=== PATIENT | female | born 1975 | race Two or more races ===

== ENCOUNTER → 2016-07-30 | Outpatient (CLI) | payer OTHER | LOC: FIMAGING 13:15 | PROVIDERS: ATTEND Obstetrics & Gynecology | DX: N92.1 Excessive and frequent menstruation with irregular cycle (principal); D25.9 Leiomyoma of uterus, unspecified; N83.9 Noninflammatory disorder of ovary, fallopian tube and broad ligament, unspecified ==

== ENCOUNTER 2016-09-27 16:51 | Emergency (ER) | payer OTHER ==
[2016-09-27] MEDS ORDERED: NS 1,000 ML IV ONE (17:28)
[2016-09-27] MEDS ORDERED: KETOROLAC 30 MG/1 ML SDV IVP ONE (17:28)
[2016-09-27] MEDS ORDERED: ONDANSETRON 4 MG/2 ML VIAL IVP ONE (17:28)
[2016-09-27] MEDS ORDERED: HYDROmorphONE/DILAUDID 1 MG/ML SYR IVP ONE (17:29)
--- NOTE | 2016-09-27 17:34 | EDPHY ---
H & P Time Seen by Provider: 09/27/16 17:18 HPI/ROS: HPI Vaginal bleeding. 41-year-old female by private vehicle. This patient has a history of uterine fibroids, ovarian cyst dysfunctional uterine bleeding. She is managed by Dr. Luis Johnson. She reports that as treatment for her dysfunctional uterine bleeding Dr. Johnson put a [place] IUD in on August 16. The patient reports that her bleeding slowed for about 5 days but then started again. She was not placed on a progesterone tablet a couple of weeks ago. Again the bleeding slowed but she then had a reaction to this which she describes as palpitations and feeling flushed. She was taken off of this on Tuesday of last week. She started bleeding again on Tuesday. She comes in complaining of her typical vaginal bleeding and associated lower abdominal cramping. She denies any other complaints. No fever. ROS: Constitutional: No fever, no chills. No weakness. Eyes: No discharge. No changes in vision. ENT: No sore throat. No nasal congestion or rhinorrhea. Respiratory: No cough. No shortness of breath. Cardiac: No chest pain, no palpitations. Gastrointestinal: Lower abdominal cramping as above, no vomiting, no diarrhea. Genitourinary: No hematuria. No dysuria or increased frequency with urination. As above. Musculoskeletal: No back pain. No neck pain. No myalgias or arthralgias. Skin: No rashes. Neurological: No headache. No focal weakness or altered sensation. Past medical history: Uterine fibroids, ovarian cyst, dysfunctional uterine bleeding, type 2 diabetes, hypertension Social history: Here by herself. No alcohol. Nonsmoker. Physical Exam: General Appearance: Alert, no distress. Moderately obese. This patient is responding to questions appropriately and in full sentences. This patient appears well-hydrated and well-nourished. Eyes: Pupils equal and round no pallor or injection. No lid edema, erythema or injection. Respiratory: There are no retractions, lungs are clear to auscultation with good air movement bilaterally. Cardiovascular: Regular rate and rhythm. No murmur. Gastrointestinal: Abdomen is soft with mild and vague tenderness on palpation of the lower abdomen, no masses, bowel sounds normal. No focal tenderness at McBurney's point. No Munoz sign. Neurological: Motor sensory function is grossly intact. Cranial nerves are normal. Gait is normal. Skin: Warm and dry, no rashes. Musculoskeletal: No CVA tenderness on palpation. Extremities are symmetrical. All joints range without pain or impingement. Psychiatric: No agitation. No depression. Database: EKG: Imaging: Pelvic ultrasound: Significant for fibroids which appear slightly bigger than previous study. The endometrium appears normal. The IUD appears grossly in correct position. She has a left-sided simple ovarian cyst. Otherwise negative study. Results were discussed with staff radiologist Dr. Marcial Garcia. Procedures: Emergency department course: IV placed. She was placed on a bus monitor. She will be started on IV normal saline with 1 L to be given over the next hour. She will be given 30 mg of IV Toradol and 0.5 mg of IV hydromorphone. She has no contraindications to taking ibuprofen. No history of renal dysfunction. 7:30 p.m., patient re-evaluated. Sitting upright on the gurney, watching TV. Vital signs reviewed and are normal. Repeat abdominal exam she is soft, nontender nondistended. Results of blood work, urinalysis and ultrasound discussed with her. She is aware that she has an iron deficiency anemia but does not take any supplements for this. She feels comfortable going home and I feel she is safe for discharge. I discussed follow-up with her OBGYN for treatment of her dysfunctional uterine bleeding. I also explained that it was important that her iron-deficient anemia be treated. I discussed follow-up with her primary care physician for this. She feels comfortable with this plan. Return to emergency department precautions were discussed with her. All of her questions were answered. She was discharged in good condition. Differential Diagnosis: The differential diagnosis on this patient includes but is not limited to uterine fibroids, dysfunctional uterine bleeding. Ectopic , ruptured corpus luteum cyst unlikely. This represents a partial list of diagnoses considered. These considerations are based on history, physical exam, past history, reassessment and diagnostic testing. Smoking Status: Current every day smoker Constitutional: Initial Vital Signs Temperature (C) 37.1 C 09/27/16 16:58 Heart Rate 88 09/27/16 16:58 Respiratory Rate 18 09/27/16 16:58 Blood Pressure 174/101 H 09/27/16 16:58 O2 Sat (%) 96 09/27/16 16:58 O2 Delivery Mode Room Air O2 (L/minute) 2 Allergies/Adverse Reactions: No Known Allergies Allergy (Unverified 09/27/16 17:03) Home Medications: Medication Instructions Recorded ALPRAZolam [Xanax 0.5 MG (*)] 0.5 mg PO 09/27/16 GABAPENTIN 400 mg PO 09/27/16 Hydrochlorothiazide [HCTZ (*)] 25 mg PO DAILY 09/27/16 Propranolol HCl [Inderal 20mg (*)] 20 mg PO 09/27/16 Zolpidem Tartrate [Ambien 5MG (*)] 5 mg PO HS 09/27/16 amLODIPine BESYLATE [Norvasc 10 mg 10 mg PO DAILY 09/27/16 (*)] metFORMIN HCL [Glucophage 500 mg 500 mg PO 09/27/16 (*)] Medical Decision Making - Diagnostics Imaging Results: Imaging Impressions Pelvic/Renal Ultrasound 09/27/16 17:29 Impression: 1. Increased size of two uterine fibroids, which limit visualization of the endometrium and IUD. 2. Limited visualization of the IUD, which is grossly normal in positioning. 3. New simple 4.1 cm left ovarian cyst with resolution of a simple right ovarian /paraovarian cyst. Findings discussed with Pool Garcias MD 09/27/2016, at 1901 hours. - Data Points Laboratory Results: Laboratory Results 09/27/16 17:22 09/27/16 17:22 09/27/16 09/27/16 09/27/16 18:38 17:22 17:22 WBC RBC Hgb Hct MCV MCH MCHC RDW Plt Count MPV Neut % (Auto) Lymph % (Auto) [place] % (Auto) Eos % (Auto) Baso % (Auto) Nucleat RBC Rel Count Absolute Neuts (auto) Absolute Lymphs (auto) Absolute Monos (auto) Absolute Eos (auto) Absolute Basos (auto) Absolute Nucleated RBC Immature Gran % Immature Gran # Platelet Estimate Hypochromasia Microcytic Cells Smear Review By PT 14.6 SEC SEC (12.0-15.0) INR 1.15 (0.83-1.16) APTT 28.6 SEC SEC (23.0-38.0) Sodium 137 mEq/L mEq/L (134-144) Potassium 3.2 mEq/L L mEq/L (3.5-5.2) Chloride 100 mEq/L mEq/L (97-110) Carbon Dioxide 23 mEq/l mEq/l (22-31) Anion Gap 14 mEq/L mEq/L (8-16) BUN 13 mg/dL mg/dL (7-23) Creatinine 0.7 mg/dL mg/dL (0.6-1.0) Estimated GFR > 60 Glucose 226 mg/dL H mg/dL (70-100) Calcium 9.6 mg/dL mg/dL (8.5-10.4) Beta HCG, Quant < 2.39 mIU/mL mIU/mL (0-4.83) Urine Color YELLOW Urine Appearance HAZY Urine pH 6.0 (5.0-7.5) Ur Specific [place] 1.027 (1.002-1.030) Urine Protein 2+ H (NEGATIVE) Urine Ketones TRACE H (NEGATIVE) Urine Blood 3+ H (NEGATIVE) Urine Nitrate NEGATIVE (NEGATIVE) Urine Bilirubin NEGATIVE (NEGATIVE) Urine Urobilinogen NEGATIVE EU EU (0.2-1.0) Ur Leukocyte Esterase TRACE H (NEGATIVE) Urine RBC 50-182 /hpf H /hpf (0-3) Urine WBC 1-3 /hpf /hpf (0-3) Ur Epithelial Cells TRACE /lpf /lpf (NONE-1+) Hyaline Casts 1-5 /lpf /lpf (0-1) Urine Mucus TRACE /lpf /lpf (NONE-1+) Urine Glucose 3+ H (NEGATIVE) 09/27/16 17:22 WBC 14.35 10^3/uL H 10^3/uL (3.80-9.50) RBC 5.11 10^6/uL 10^6/uL (4.18-5.33) Hgb 10.6 g/dL L g/dL (12.6-16.3) Hct 33.6 % L % (38.0-47.0) MCV 65.8 fL L fL (81.5-99.8) MCH 20.7 pg L pg (27.9-34.1) MCHC 31.5 g/dL L g/dL (32.4-36.7) RDW 13.5 % % (11.5-15.2) Plt Count 291 10^3/uL 10^3/uL (150-400) MPV 12.5 fL H fL (8.7-11.7) Neut % (Auto) 74.4 % H % (39.3-74.2) Lymph % (Auto) 17.8 % % (15.0-45.0) [place] % (Auto) 5.7 % % (4.5-13.0) Eos % (Auto) 1.3 % % (0.6-7.6) Baso % (Auto) 0.3 % % (0.3-1.7) Nucleat RBC Rel Count 0.0 % % (0.0-0.2) Absolute Neuts (auto) 10.68 10^3/uL H 10^3/uL (1.70-6.50) Absolute Lymphs (auto) 2.55 10^3/uL 10^3/uL (1.00-3.00) Absolute Monos (auto) 0.82 10^3/uL H 10^3/uL (0.30-0.80) Absolute Eos (auto) 0.18 10^3/uL 10^3/uL (0.03-0.40) Absolute Basos (auto) 0.05 10^3/uL 10^3/uL (0.02-0.10) Absolute Nucleated RBC 0.00 10^3/uL 10^3/uL (0-0.01) Immature Gran % 0.5 % % (0.0-1.1) Immature Gran # 0.07 10^3/uL 10^3/uL (0.00-0.10) Platelet Estimate ADEQUATE (ADEQ) Hypochromasia 2+ H Microcytic Cells 2+ H Smear Review By Pending PT INR APTT Sodium Potassium Chloride Carbon Dioxide Anion Gap BUN Creatinine Estimated GFR Glucose Calcium Beta HCG, Quant Urine Color Urine Appearance Urine pH Ur Specific [place] Urine Protein Urine Ketones Urine Blood Urine Nitrate Urine Bilirubin Urine Urobilinogen Ur Leukocyte Esterase Urine RBC Urine WBC Ur Epithelial Cells Hyaline Casts Urine Mucus Urine Glucose Medications Given: Discontinued Medications Hydromorphone HCl (Dilaudid) 0.5 mg IVP EDNOW ONE Stop: 09/27/16 17:30 Last Admin: 09/27/16 17:49 Dose: 0.5 mg Sodium Chloride (Ns) 1,000 mls @ 0 mls/hr IV ONCE ONE; Wide Open PRN Reason: Protocol Stop: 09/27/16 17:29 Last Admin: 09/27/16 17:50 Dose: 1,000 mls Ketorolac Tromethamine (Toradol) 30 mg IVP EDNOW ONE Stop: 09/27/16 17:29 Last Admin: 09/27/16 18:24 Dose: Not Given Ondansetron HCl (Zofran) 4 mg IVP EDNOW ONE Stop: 09/27/16 17:29 Last Admin: 09/27/16 17:50 Dose: 4 mg Departure - Departure Disposition: Home, Routine, Self-Care Clinical Impression: Dysfunctional uterine bleeding, Iron deficiency anemia Condition: Good Instructions: Dysfunctional Uterine Bleeding (ED), Iron Deficiency Anemia (ED) Additional Instructions: Read and follow provided instructions. Follow-up with your primary care physician and OBGYN in 1-2 days for re- evaluation as discussed management of your dysfunctional uterine bleeding as well as iron deficiency anemia. Return to the emergency department for increased bleeding, lightheadedness, fever, worsening pain or other serious concerns. Referrals: Lashell Douglas MD [Primary Care Provider] - As per Instructions Luis-Bibiana Johnson MD [Medical Doctor] - As per Instructions
[2016-09-27 17:37] LABS: % IMMATURE GRANULYOCYTES 0.5 % (0.0-1.1); ABSOLUTE IMMATURE GRANULOCYTES 0.07 10^3/uL (0.00-0.10); ADD DIFF? NO; ADD MORPH? YES; ADD SCAN? NO; ATYPICAL LYMPHOCYTE FLAG 0 (0-99); FRAGMENT RBC FLAG 20 (0-99); HEMATOCRIT 33.6 % (38.0-47.0); HEMOGLOBIN 10.6 g/dL (12.6-16.3); LEFT SHIFT FLG 60 (0-99); LIPEMIA HEMOLYSIS FLAG 80 (0-99); MEAN CELL HEMOGLOBIN 20.7 pg (27.9-34.1); MEAN CELL HEMOGLOBIN CONCENTR. 31.5 g/dL (32.4-36.7); MEAN PLATELET VOLUME 12.5 fL (8.7-11.7); PLATELET CLUMPS FLAG 40 (0-99); PLATELET COUNT 291 10^3/uL (150-400); RED BLOOD CELL COUNT 5.11 10^6/uL (4.18-5.33); RED CELL DISTRIBUTION WIDTH 13.5 % (11.5-15.2)
[2016-09-27 17:46] LABS: APTT 28.6 SEC (23.0-38.0)
[2016-09-27 17:50] LABS: INR 1.15 (0.83-1.16); PROTIME(PATIENT) 14.6 SEC (12.0-15.0)
[2016-09-27 17:52] LABS: ANION GAP 14 mEq/L (8-16); CALCIUM 9.6 mg/dL (8.5-10.4); CARBON DIOXIDE 23 mEq/l (22-31); CHLORIDE 100 mEq/L (97-110); CREATININE 0.7 mg/dL (0.6-1.0); GLOMERULAR FILTRATION RATE > 60; GLUCOSE 226 mg/dL (70-100); POTASSIUM 3.2 mEq/L (3.5-5.2); SODIUM 137 mEq/L (134-144)
[2016-09-27 17:55] LABS: MEAN CELL VOLUME 65.8 fL (81.5-99.8)
[2016-09-27 17:56] VITALS: O2SAT 94
[2016-09-27 18:49] LABS: COLOR YELLOW; LEUKOCYTE ESTERASE,URINE TRACE (NEGATIVE); NITRITE,URINE NEGATIVE (NEGATIVE)
[2016-09-27 18:55] LABS: MUCUS TRACE /lpf (NONE-1+); RBC,URINE 50-182 /hpf (0-3)
[2016-09-27 19:07] LABS: HYPOCHROMIA 2+; MICROCYTES 2+; PLATELET ESTIMATE ADEQUATE (ADEQ)
[2016-09-27 19:54] VITALS: BP 118/74; PULSE 70; RESP 14; TEMP 98.4
== END 2016-09-27 19:53 | disposition home or self-care (01) ==
DX: N93.8 Other specified abnormal uterine and vaginal bleeding (principal); D50.9 Iron deficiency anemia, unspecified; I10 Essential (primary) hypertension; E11.9 Type 2 diabetes mellitus without complications; F17.200 Nicotine dependence, unspecified, uncomplicated; Z79.84 Long term (current) use of oral hypoglycemic drugs
CPT/HCPCS: 96374; J1170; J1885; J2405

== ENCOUNTER → 2016-09-29 | Outpatient (CLI) | payer OTHER | LOC: BMCIMAGING 14:21 | PROVIDERS: ATTEND Internal Medicine | DX: R16.0 Hepatomegaly, not elsewhere classified (principal); R16.1 Splenomegaly, not elsewhere classified; N28.81 Hypertrophy of kidney; R10.9 Unspecified abdominal pain; R94.5 Abnormal results of liver function studies; Z90.49 Acquired absence of other specified parts of digestive tract ==

== ENCOUNTER → 2017-03-08 | Outpatient (CLI) | payer OTHER | LOC: BMCIMAGING 08:57 | PROVIDERS: ATTEND Internal Medicine | DX: K59.00 Constipation, unspecified (principal) ==

== ENCOUNTER 2017-08-24 11:43 | Observation (INO) | payer OTHER ==
[2017-08-24] MEDS ORDERED: DEXMEDETOMIDINE HCL 200 MCG in NS 50 ML IV ONE ×2 (12:00→15:45)
[2017-08-24] MEDS ORDERED: MEPERIDINE 25 MG/ML SYR IVP PRN (12:13)
[2017-08-24] MEDS ORDERED: HEPARIN 10,000 UNIT/10 ML MDV (1,000 UNIT/ML) IVP PRN (12:13)
[2017-08-24] MEDS ORDERED: SCOPOLAMINE HYDROBROMIDE 1 MG/3 DAYS PATCH TD ONE (12:13)
[2017-08-24] MEDS ORDERED: fentaNYL 100 MCG/2 ML INJ IVP PRN (12:13)
[2017-08-24] MEDS ORDERED: KETOROLAC 30 MG/1 ML SDV IVP ONE (12:13)
[2017-08-24] MEDS ORDERED: DEXAMETHASONE 10 MG/ML VIAL IVP ONE (12:13)
[2017-08-24] MEDS ORDERED: GLUCAGON HCL 1 MG VIAL IVP PRN (12:13)
[2017-08-24] MEDS ORDERED: PROTAMINE SULFATE 50 MG/5 ML VIAL IVP PRN (12:13)
[2017-08-24] MEDS ORDERED: NS 1,000 ML IV ONE (12:13)
[2017-08-24] MEDS ORDERED: MIDAZOLAM 2 MG/2 ML VIAL IVP PRN (12:13)
[2017-08-24] MEDS ORDERED: FLUMAZENIL 0.5 MG/5 ML MDV IVP PRN (12:13)
[2017-08-24] MEDS ORDERED: ALTEPLASE 2 MG VIAL IVP PRN (12:13)
[2017-08-24] MEDS ORDERED: NALOXONE HCL 0.4 MG/ML INJ IVP PRN ×2 (12:13→12:14)
[2017-08-24] MEDS ORDERED: diphenhydrAMINE 25 MG CAP PO PRN (12:14)
[2017-08-24] MEDS ORDERED: HYDROmorphONE/DILAUDID 6 MG/30 ML PCA IV PRN (12:14)
--- NOTE | 2017-08-24 12:32 | PDPROPOC ---
Sedation Plan of Care Sedation Plan of Care: vital signs stable, mental status noted, patient educated of risks, benefits, alternatives, patient can tolerate sedation ASA Classification: ASA 2 Planned drugs: fentanyl, midazolam Mallampati Score: Class 1 Mallampati Reference Image: Patient passed 3-3-2 rule?: Yes
[2017-08-24 12:35] LABS: PLATELET COUNT 309 10^3/uL (150-400)
--- NOTE | 2017-08-24 12:35 | PDGENHP ---
History & Physical Chief Complaint: COMPLEX PELVIC SYMPTOMS History of Present Illness: PAIN, BLOATING, HEAVY MENSTRATION Pertinent Past, Social, Family History: C/S, TONSILECTOMY, TUBAL LIGATION, GB, LEEP, ENDOMETRIAL ABLATION Relevant Physical Exam: NO ACTIVE DISTRESS; PULSES NORMAL. Cardiorespiratory Assessment: RRR, CTA
[2017-08-24 12:43] LABS: INR 1.02 (0.83-1.16); PROTIME(PATIENT) 13.6 SEC (12.0-15.0)
[2017-08-24] MEDS: ONDANSETRON 4 MG/2 ML VIAL IVP PRN ×3 (13:01→22:32)
[2017-08-24] MEDS ORDERED: MIDAZOLAM 2 MG/2 ML VIAL ONE (14:30)
[2017-08-24] MEDS ORDERED: fentaNYL 100 MCG/2 ML INJ ONE ×2 (14:30→16:42)
[2017-08-24] MEDS ORDERED: IOPAMIDOL (ISOVUE-300) 100 ML BTL ONE (14:58)
[2017-08-24] MEDS ORDERED: LIDOCAINE 1% 300 MG/30 ML SDV ONE (16:22)
[2017-08-24] MEDS ORDERED: BUPIVACAINE 0.5% 30 ML SDV ONE (16:22)
[2017-08-24] MEDS ORDERED: LACTULOSE 20 GM/30 ML UDCUP PO PRN (16:40)
[2017-08-24] MEDS ORDERED: BISACODYL 10 MG SUPP PR PRN (16:40)
[2017-08-24] MEDS ORDERED: POLYETHYLENE GLYCOL 3350 17 GM PKT PO PRN (16:40)
[2017-08-24] MEDS ORDERED: MAGNESIUM HYDROXIDE 30 ML UDCUP PO PRN (16:40)
--- NOTE | 2017-08-24 16:44 | PDRADPN ---
Radiology Procedure Note Date of Procedure: 08/24/17 Radiologist: Katherine Shankar Anesthesia: IV Sedation Pre-op Diagnosis: uterine fibroids Post-op Diagnosis: same Indication: worsening symptoms Procedure: Ufe Finding(s): BILATERAL UTERINE ARTERIES EMBOLIZED. EXPECT PATIENT TO HAVE SIGNIFICANT PAIN DUE TO PROCEDURE AND UNDERLYING TOLERANCE LEVEL. Inf/Abcess present in the surg proc area at time of surgery?: No Complications: NONE
[2017-08-24] MEDS ORDERED: NS 1,000 ML IV SCH (16:45)
[2017-08-24] MEDS: fentaNYL 100 MCG/2 ML INJ IVP PRN ×2 (16:49→16:56)
[2017-08-24] MEDS: KETOROLAC 30 MG/1 ML SDV IVP SCH ×2 (18:06→23:51)
[2017-08-24] MEDS: morphINE SR 15 MG TAB PO SCH (18:08)
[2017-08-24] MEDS: PROMETHAZINE HCL 25 MG/ML INJ IVP PRN (20:39)
[2017-08-24] MEDS: SENNOSIDES/DOCUSATE SODIUM TAB PO SCH (21:01)
[2017-08-25] MEDS: PROMETHAZINE HCL 25 MG/ML INJ IVP PRN ×3 (01:49→14:00)
[2017-08-25] MEDS: HYDROmorphONE/DILAUDID 2 MG TAB PO PRN ×3 (04:43→12:51)
[2017-08-25] MEDS: ONDANSETRON 4 MG/2 ML VIAL IVP PRN (04:43)
[2017-08-25] MEDS: morphINE SR 15 MG TAB PO SCH (06:09)
[2017-08-25] MEDS: KETOROLAC 30 MG/1 ML SDV IVP SCH (06:09)
[2017-08-25] MEDS: SENNOSIDES/DOCUSATE SODIUM TAB PO SCH (08:58)
[2017-08-25] MEDS ORDERED: levOFLOXACIN 500 MG/DEXTROSE 100 ML IV ONE (09:00)
[2017-08-25] MEDS ORDERED: IBUPROFEN 600 MG TAB PO SCH (12:00)
[2017-08-25 13:12] VITALS: BP 163/96
[2017-08-25] MEDS ORDERED: NITROGLYCERIN/D5W 50 MG/250 ML BOTTLE IV ONE (13:24)
[2017-08-25] MEDS ORDERED: PROPRANOLOL HCL 20 MG TAB PO SCH (14:15)
[2017-08-25] MEDS ORDERED: ALPRAZolam 0.5 MG TAB PO SCH (14:15)
[2017-08-25] MEDS ORDERED: WELLBUTRIN 150 MG PO SCH (14:15)
[2017-08-25] MEDS ORDERED: HYDROCHLOROTHIAZIDE 25 MG TAB PO SCH ×2 (14:15→15:15)
--- NOTE | 2017-08-25 14:32 | SOAPPROG ---
SOAP Progress Note Assessment/Plan: Assessment: post [place]. Overall doing well, as anticipated. LLQ pain may be uterine swelling, constipation. Plan: 1. D/C today. 2. Instructions discussed with patient and . 08/25/17 14:30 Subjective: Off sweeper cleaner industrial. Was doing well this am, then acute onset of LLQ that's intermittent. No other complaints. Objective: Vital Signs Temp Pulse Resp BP Pulse Ox 36.2 C 92 18 163/96 H 93 08/25/17 13:11 08/25/17 13:11 08/25/17 13:11 08/25/17 13:11 08/25/17 13:11 Laboratory Results 08/24/17 12:14 08/24/17 12:14 08/24/17 08/25/17 08/26/17 05:59 05:59 05:59 Intake Total 1093.2 1000 Output Total 2250 1700 Balance -1156.8 -700 PT 13.6 SEC (12.0-15.0) 08/24/17 12:14 INR 1.02 (0.83-1.16) 08/24/17 12:14 Patient is not in significant distress on exam. Abd is soft. No rebound tenderness. No groin hematoma. Pulses normal. - Pending Discharge Pending Discharge Within 24 Hours: Yes Pending Discharge Date: 08/26/17 Pending Discharge Time: 11:00 ICD10 Worksheet Patient Problems: Problems Problem Status Onset Uterine fibroid Acute - ICD10 Problem Qualifiers (1) Uterine fibroid
[2017-08-25] MEDS ORDERED: PROPRANOLOL HCL 80 MG PO SCH (15:00)
[2017-08-25] MEDS ORDERED: amLODIPine BESYLATE 5 MG TAB PO SCH ×2 (15:00→15:15)
[2017-08-25] MEDS ORDERED: ALPRAZolam 1 MG TAB PO SCH (15:15)
[2017-08-25] MEDS ORDERED: buPROPion SR 150 MG TAB PO SCH (15:15)
[2017-08-25] MEDS ORDERED: NORETHINDRONE 5 MG PO SCH (16:00)
== END 2017-08-25 15:00 | disposition home or self-care (01) ==
LOC: FIMAGING 11:43 → F3E 16:40 → FOB 18:40
PROVIDERS: ADMIT Radiology Diagnostic Radiology; ATTEND Radiology Diagnostic Radiology
DX: D25.9 Leiomyoma of uterus, unspecified (principal); R10.2 Pelvic and perineal pain; R14.0 Abdominal distension (gaseous); N92.4 Excessive bleeding in the premenopausal period
CPT/HCPCS: 36247; 37243; 75736; 99152; 99153; C1769; G0378; J1100; J1170; J1200; J1644; J1885; J1956; J2250; J2310; J2405; J2550; J3010; Q9967

== ENCOUNTER → 2018-05-25 | Outpatient (CLI) | payer OTHER | LOC: FIMAGING 18:28 | PROVIDERS: ATTEND Internal Medicine | DX: R05 Cough (principal) ==